=== PATIENT | female | born 1995 | race Caucasian/White ===

== ENCOUNTER 2020-11-18 10:16 | Emergency (ER) | payer OTHER, SELFPAY ==
--- NOTE | ~2020-11-18 | XR_ITS ---
XR chest 2V DATE: 11/18/2020 10:49 INDICATION: Wheezing. Vaper/smoker TECHNIQUE: PA and lateral views COMPARISON: None FINDINGS: Normal heart size. No hilar or mediastinal enlargement. No pulmonary infiltrate or consolid ation, pleural effusion or pulmonary vascular congestion or pneumothorax. Included skeletal structures are unremarkable other than minimal thoracic scoliosis. IMPRESSION: No active cardiopulmonary disease Reviewed, dictated and finalized at location A.
[2020-11-18 10:22] VITALS: BP 111/62; PULSE 86; RESP 20; TEMP 36.6; O2SAT 100
--- NOTE | 2020-11-18 10:27 | ED.GENADULT ---
HPI - General Adult General Chief complaint: Upper Respiratory Infection Stated complaint: sob cough headache congetion Time Seen by Provider: 11/18/20 10:27 Source: patient Mode of arrival: ambulatory Limitations: no limitations History of Present Illness HPI narrative: 25-year-old female patient presents to the [facility] with complaints of cold symptoms for the past 2 weeks. Patient states she has had a cough that started about 2 weeks ago and thought it was allergies because she also had some congestion and runny nose. Patient states is gotten continuously worse and lost her taste and smell about 2 to 3 days ago. Patient denies fevers that she is aware of. Patient states she feels like her chest is heavy and has shortness of breath at times. Patient does admit to vaping at times. Patient states he has been taking [id number] Mucinex and Zyrtec for her symptoms. Related Data Home Medications Medication Instructions Recorded Confirmed norgestimate-ethinyl estradiol 1 tablet PO DAILY 11/18/20 11/18/20 [Tri-Sprintec (28)] Allergies Allergy/AdvReac Type Severity Reaction Status Date / Time hydrocodone Allergy Intermediate Rash Verified 11/18/20 10:37 Review of Systems Review of Systems: Narrative: CONSTITUTIONAL: Denies fever, chills, or sweats. EYES: Denies visual changes, redness, or discharge. ENT: Positive rhinorrhea, congestion, sore throat, positive bilateral otalgia. CARDIOVASCULAR: Positive chest pain, denies palpitations, or edema. RESPIRATORY: Positive cough, positive dyspnea. GASTROINTESTINAL: Denies abdominal pain, nausea, vomiting, or diarrhea. GENITOURINARY: Denies dysuria or hematuria. SKIN: Denies rash or itching. MUSCULOSKELETAL: Denies back pain, joint pain, or myalgia. NEUROLOGIC: Denies headache, numbness, or weakness. PSYCHIATRIC: Denies anxiety or depression. [facility] Past Medical History Medical History (Updated 11/18/20 @ 11:07 by COLBY Dobson) No significant past medical history Social History Social History (Updated 11/18/20 @ 10:50 by COLBY Dobson) Smoking status: Current every day smoker Tobacco type: e-cigarettes/vaping Comments At the time of my signature I agree with nursing past medical history, surgical, social, and family history. There is no relevant family history pertinent to the presenting complaint. Exam Narrative: Exam Narrative: GENERAL: Well-appearing, well-nourished, and in no acute distress. HEAD: Normocephalic, atraumatic. EYES: PERRLA and EOMI. ENT: Nares with erythema and edema noted bilaterally, no rhinorrhea or epistaxis. Mucous membranes moist. Postnasal drip present to the posterior pharynx. Unable to assess bilateral TMs due to cerumen impaction. NECK: Supple. No lymphadenopathy CHEST: Patient has inspiratory wheezing noted to the right upper and lower lobe on auscultation. No respiratory distress. Patient able talk clear complete sentences. No tripoding noted. HEART: Regular rate and rhythm. No murmur heard. Normal peripheral pulses. ABDOMEN: Soft, nontender, nondistended, normal active bowel sounds. EXTREMITIES: Normal range of motion. No edema. SKIN: Warm, dry, no rash. NEURO: No focal deficits. Alert and oriented x3. Course Reevaluation(s) Reevaluation #1: Reevaluated patient and notified her that her x-ray is negative for any acute pneumonia. Discussed with her that her rapid Covid test today is negative but we will send out a PCR. Discussed with patient and reevaluate her after her breathing treatment. Patient states her breathing does feel much better. Patient still has a very slight inspiratory wheeze noted on the right lower lobe. Discussed with patient we are going to discharge her home with an albuterol inhaler, oral steroid and I encouraged her to continue the Mucinex and the Zyrtec that she has at home. Patient verbalized understanding denies any other questions or concerns at this time. Date: 11/18/20 Time: 11:30
[2020-11-18 10:37] VITALS: BP 111/62; PULSE 86; RESP 20; TEMP 36.6; O2SAT 100
[2020-11-18] MEDS: IPRATROPIUM BR 0.02% INH SOLN 0.5 MG/2.5 ML VIAL INHALATION (10:56)
[2020-11-18] MEDS: ALBUTEROL SULFATE NEB 2.5 MG/3 ML INH INHALATION (10:57)
[2020-11-19 13:55] LABS: SARS-CoV-2 RNA PCR Negative
== END 2020-11-18 11:30 | disposition home or self-care (01) ==
PROVIDERS: Emergency Provider Nurse Practitioner Family
DX: J40 Bronchitis, not specified as acute or chronic (principal); H61.23 Impacted cerumen, bilateral; Z20.822 Contact with and (suspected) exposure to COVID-19; F17.200 Nicotine dependence, unspecified, uncomplicated
CPT/HCPCS: 69210; 71046; 87426; 99203; C9803; G0463; U0003; U0005

== ENCOUNTER 2022-12-15 15:28 | Emergency (ER) | payer BC, SELFPAY ==
[2022-12-15 15:35] VITALS: BP 114/62; PULSE 95; RESP 20; TEMP 37.6; O2SAT 99
--- NOTE | 2022-12-15 16:10 | ED.FEMALEGU ---
HPI - Female Genitourinary General Chief complaint: Urogenital-Female Stated complaint: Urinary Problem Time Seen by Provider: 12/15/22 16:11 Source: patient, RN notes reviewed and old records reviewed Mode of arrival: ambulatory Limitations: no limitations History of Present Illness HPI Narrative: 27-year-old female who presents to [facility] with complaints of 3 day history of perineal discomfort and lower abdominal pressure with frequency of urination, urgency with urination and decreased amount. Patient reports she has some blood in urine denies any nausea vomiting or any fevers. Patient repors no concern for exposure to STD's, denies any vaginal discharge or drainage. MD elicited complaint: UTI Onset (ago): day(s) Location of symptoms: perineum and suprapubic Severity scale (1-10): 7 Quality of pain: burning and aching Vaginal discharge: none Treatment prior to arrival: none Related Data Home Medications Medication Instructions Recorded Confirmed norgestimate-ethinyl estradiol 1 tablet PO DAILY 11/18/20 12/15/22 0.18 mg/0.215mg/0.25mg-35 mcg(28)tablet (Tri-Sprintec (28)) Allergies Allergy/AdvReac Type Severity Reaction Status Date / Time hydrocodone Allergy Intermediate Rash Verified 12/15/22 16:05 Review of Systems Review of Systems: CONSTITUTIONAL: Denies fever, chills, or sweats. CARDIOVASCULAR: Denies chest pain, palpitations, or edema. RESPIRATORY: Denies cough or dyspnea. GASTROINTESTINAL: supra pubic abdominal pain and perineal ,no nausea, vomiting, or diarrhea. GENITOURINARY: Reports dysuria, frequency, urgency. Denies flank pain positive for hematuria. SKIN: Denies rash or itching. MUSCULOSKELETAL: Denies back pain or myalgia. Denies CVA tenderness NEUROLOGIC: Denies headache All systems reviewed & are unremarkable except as noted in HPI and below PMFSH Past Medical History Medical History (Updated 12/16/22 @ 11:18 by Caren Mullins NP) Environmental allergies Surgical History Surgical History (Updated 12/16/22 @ 11:14 by Caren Mullins NP) H/O umbilical hernia repair Hx of appendectomy Social History Social History (Updated 12/16/22 @ 11:11 by Caren Mullins NP) Smoking status: Current every day smoker Tobacco type: e-cigarettes/vaping Gender identity (if verbalized by the patient): Female Comments At time of signature, agree with nursing past medical, surgical, social and family history. There is no relevant family history pertinent to the presenting complaint Exam Narrative: GENERAL: Well-appearing, well-nourished, and in no acute distress. HEAD: Normocephalic, atraumatic. NECK: Supple.no lymphadenopathy CHEST: Clear to auscultation. No respiratory distress.SAO2 99% on room air HEART: Regular rate and rhythm. No murmur heard. Normal peripheral pulses. ABDOMEN: Soft,suprapubic tender, nondistended, normal active bowel sounds. No CVA tenderness, urinary burning, hematuria, perineal discomfort. EXTREMITIES: Normal range of motion. No edema. SKIN: Warm, dry, no rash. NEURO: No focal deficits. Alert and oriented x3. Course Course Emergency Course: Patient is aware of diagnosis, understands and agrees to treatment plan.? Anticipatory guidance given.? Patient agrees to follow-up as directed and is aware of reasons to seek care at the emergency department. Portions of this record may have been created with voice recognition software Level of Care: Express Care Visit Vital Signs Vital signs: Vital Signs Temperature 37.6 C 12/15/22 15:35 Pulse Rate 95 12/15/22 15:35 Respiratory Rate 20 12/15/22 15:35 Blood Pressure 114/62 12/15/22 15:35 Pulse Oximetry 99 12/15/22 15:35 Oxygen Delivery Room Air 12/15/22 15:35 Temperature 37.6 C 12/15/22 15:35 Pulse Rate 95 12/15/22 15:35 Respiratory Rate 20 12/15/22 15:35 Blood Pressure 114/62 12/15/22 15:35 Pulse Oximetry 99 12/15/22 15:35 Oxygen Delivery Room Air
== END 2022-12-15 16:25 | disposition home or self-care (01) ==
PROVIDERS: Emergency Provider Registered Nurse
DX: N39.0 Urinary tract infection, site not specified (principal); F17.290 Nicotine dependence, other tobacco product, uncomplicated
CPT/HCPCS: 81003; 87086; 87088; 99213; G0463